=== PATIENT | male | born 1935 | race Caucasian/White ===

== ENCOUNTER 2017-04-10 21:09 | Emergency (ER) | payer OTHER ==
[2017-04-10 22:11] VITALS: BP 117/66; PULSE 77; TEMP 97.6; BMI 30.8
--- NOTE | 2017-04-10 22:54 | PDOC ---
History of Present Illness - General Chief Complaint: Blood Sugar Problem Stated Complaint: BLOOD SUGER PROB. Time Seen by Provider: 04/10/17 22:16 - History of Present Illness Initial Comments: 04/10/17 22:54 CHIEF COMPLAINT: syncope HISTORY OF PRESENT ILLNESS: 82 yo M with hx of NIDDM and HTN presents to ED s/p fall from bed and syncope. Patient's family is at bedside and report that they heard a "thump" from upstairs and found the patient on the floor unresponsie "for a few seconds, maybe a few minutes." Patient denies headache, nausea, vomiting and family reports he is now acting per baseline. Family denies any slurred speech or weakness . Patient is well appearing and now eating in the ED. PAST MEDICAL HISTORY: as per HPI FAMILY HISTORY: Denies SOCIAL HISTORY: Denies tobacco, alcohol, illicit drug use. SURGICAL HISTORY: Denies ALLERGIES: No known drug allergies REVIEW OF SYSTEMS General/Constitutional: Denies fever or chills. Denies weakness, weight change. HEENT: Denies change in vision. Denies ear pain or discharge. Denies sore throat. Cardiovascular: Denies chest pain or shortness of breath. Respiratory: Denies cough, wheezing, or hemoptysis. Gastrointestinal: Denies nausea, vomiting, diarrhea or constipation. Denies rectal bleeding. Genitourinary: Denies dysuria, frequency, or change in urination. Musculoskeletal: Pain to "left side of my tailbone" and L shoulder pain. Skin and breasts: Denies rash or easy bruising. Neurologic: LOC "for a few seconds or minutes." PHYSICAL EXAM General Appearance: Well-appearing, appropriately dressed. No apparent distress. HEENT: EOMI, PERRLA, normal ENT inspection, normal voice, TMs normal, pharynx normal. No conjunctival pallor. No photophobia, scleral icterus. Neck: Supple. Trachea midline. No tenderness, rigidity, carotid bruit, stridor , lymphadenopathy, or thyromegaly. Respiratory/Chest: Lungs CTAB. No shortness of breath, chest tenderness, respiratory distress, accessory muscle use. No crackles, rales, rhonchi, stridor , wheezing, dullness Cardiovascular: RRR. S1, S2. No JVD, murmur, bradycardia, tachycardia. Vascular Pulses: Dorsalis-Pedis (R): 2+, Dorsalis-Pedis (L): 2+ Gastrointestinal/Abdominal: Normal bowel sounds. Abdomen soft, non-distended. No tenderness or rebound tenderness. No organomegaly, pulsatile mass, guarding , hernia, hepatomegaly, splenomegaly. Musculoskeletal/Extremities: Reproducible tenderness to L shoulder and sacrum. Normal inspection. FROM of all extremities, normal capillary refill. Pelvis Stable. No CVA tenderness. No tenderness to extremities, pedal edema, swelling , erythema or deformity. Integumentary: Appropriate color, dry, warm. No cyanosis, erythema, jaundice or rash Neurologic: stoker erector and servicer II-XII intact. Fully oriented, alert. Appropriate mood/affect. Motor strength 5/5. No appreciable EOM palsy, facial droop or sensory deficit. A&Ox3, follow commands, respond appropriately CN2-12: conjugate gaze, pupil round, equal and reactive to light. Visual field full to confrontation. EOMI without nystagmus, pursuit is smooth without saccade. Facial sensation and muscle activation intact bilaterally. Hearing intact bilaterally. Palate elevate symmetrically. Shoulder shrug and neck turn full strength. Tongue protrude midline. Motor: UE and LE strength 5/5 throughout bilaterally. Muscle tone and bulk normal. Sensory: pin prick & temp : BUE & BLE intact and equal bilaterally Vibration & propioception: intact bilaterally at 1st MCP and MTP joints. no sensory level noted on trunk Cerebellar: Rapid-alternating movement with regular rhythm without bradykinesia. Uysjlc-nk-vjbn and reap-ge-etrr intact bilaterally without dysmetria or overshoot. Gait narrow based. No shuffling. Full hip flexion and knee flexion. Past History - Past Medical History Allergies/Adverse Reactions: Allergies Allergy/AdvReac Type Severity Reaction Status Date / Time No Known Allergies Allergy Verified 04/10/17 22:28 Home Medications: Ambulatory Orders Aspirin [ASA] 81 mg PO DAILY 09/18/12 Atorvastatin Calcium 20 mg PO DAILY 09/18/12 Glimepiride [Amaryl] 4 mg PO DAILY@0700 09/18/12 Saxagliptin HCl/Metformin HCl [Kombiglyze Xr 2.5-1,000 mg Tab] 1 each PO DAILY 09/18/12 Meclizine HCl [Antivert -] 25 mg PO TID PRN #30 tablet 03/24/14 ASA/Calcium Carb/Mag/Aluminum [Rolanda Plus 500 mg Caplet] 1 - 2 tab PO DAILY PRN 12/14/14 Antiox.mv No.10/Omeg3s/Lut/New [I-Caps with Lutein-[place] 3 Sfg] 2 each PO BID Meloxicam [Mobic (Nf) -] 15 mg PO DAILY 12/14/14 Ramipril 2.5 mg PO DAILY 12/14/14 Econazole Nitrate 1 applic TD DAILY 03/17/16 Diabetes: Yes HTN: Yes Hypercholesterolemia: Yes - Suicide/Smoking/Psychosocial Hx Smoking Status: No Smoking History: Never smoked Number of Cigarettes Smoked Daily: 0 Hx Alcohol Use: No Drug/Substance Use Hx: No Substance Use Type: None *Physical Exam - Vital Signs Last Vital Signs Temp Pulse Resp BP Pulse Ox 97.6 F 77 16 117/66 98 04/10/17 22:05 04/10/17 22:05 04/10/17 22:05 04/10/17 22:05 04/10/17 22:05 ED Treatment Course - LABORATORY CBC & Chemistry Diagram: 04/10/17 23:33 04/10/17 23:33 - ADDITIONAL ORDERS Additional order review: Laboratory Results 04/10/17 22:33 POC Glucometer 67.50743 04/10/17 22:33 POC Glucometer 67.04186 - RADIOLOGY Radiology Studies Ordered: Category Date Time Status HEAD CT WITHOUT CONTRAST [CT] Stat CT Scan 04/10/17 22:51 Ordered SACRUM [RAD] Stat Radiology 04/10/17 22:51 Ordered SHOULDER-LEFT [RAD] Stat Radiology 04/10/17 22:51 Ordered Medical Decision Making - Medical Decision Making 04/10/17 23:44 82 yo M with hx of NIDDM and HTN presents to ED s/p fall from bed and syncope. -CBC, CMP, PT/INR, card profile, mg -UA, Ucx -POC glucose -Head CT -shoulder/sacral x-rays 04/11/17 00:16 POC glucose 67, taken while patient was eating sandwich. Syncope likely secondary to hypoglycemia, now resolved. Advised patient to f/u with Dr. Loera regarding diabetes medication. *DC/Admit/Observation/Transfer Diagnosis at time of Disposition: Hypoglycemia Syncope Qualifiers: Syncope type: unspecified Qualified Code(s): R55 - Syncope and collapse - Discharge Dispostion Disposition: HOME Condition at time of disposition: Stable Admit: No - Referrals Referrals: Oriana Loera MD [Primary Care Provider] - - Patient Instructions Printed Discharge Instructions: DI for Hypoglycemia Additional Instructions: As discussed, all your labs and imaging were negative today. Please follow up with Dr. Loera for management of your diabetes medication this week. If you develop any chest pain, shortness of breath, dizziness, nausea, vomiting, tremors, or any new or worsening symptoms, please return to the ER. - Post Discharge Activity
--- NOTE | 2017-04-10 23:21 | PDOC ---
*Physical Exam - Vital Signs Last Vital Signs Temp Pulse Resp BP Pulse Ox 97.6 F 77 16 117/66 98 04/10/17 22:05 04/10/17 22:05 04/10/17 22:05 04/10/17 22:05 04/10/17 22:05 ED Treatment Course - LABORATORY CBC & Chemistry Diagram: 04/10/17 23:33 04/10/17 23:33 - ADDITIONAL ORDERS Additional order review: Laboratory Results 04/10/17 22:33 POC Glucometer 67.83262 04/10/17 22:33 POC Glucometer 67.85009 Medical Decision Making - Medical Decision Making 04/10/17 23:21 agree with care from MARCEL Velásquez *DC/Admit/Observation/Transfer Diagnosis at time of Disposition: Syncope, Hypoglycemia - Discharge Dispostion Disposition: HOME Condition at time of disposition: Stable - Referrals Referrals: Oriana Loera MD [Primary Care Provider] - - Patient Instructions Printed Discharge Instructions: DI for Hypoglycemia Additional Instructions: As discussed, all your labs and imaging were negative today. Please follow up with Dr. Loera for management of your diabetes medication this week. If you develop any chest pain, shortness of breath, dizziness, nausea, vomiting, tremors, or any new or worsening symptoms, please return to the ER. - Post Discharge Activity
[2017-04-10 23:22] LABS: URINE APPEARANCE CLEAR; URINE BILIRUBIN NEGATIVE (NEGATIVE); URINE BLOOD NEGATIVE (NEGATIVE); URINE COLOR YELLOW; URINE GLUCOSE (UA) NEGATIVE (NEGATIVE); URINE KETONE NEGATIVE (NEGATIVE); URINE LEUK ESTERASE NEGATIVE (NEGATIVE); URINE NITRITE NEGATIVE (NEGATIVE); URINE PROTEIN NEGATIVE (NEGATIVE)
[2017-04-10 23:42] LABS: BASO % 0.5 % (0-2.0); EOS % 0.2 % (0-4.5); HEMATOCRIT 41.4 % (35.4-49); HEMOGLOBIN 13.9 GM/dL (11.7-16.9); LYMPH % 19.2 % (8-40); MCHC 33.6 g/dl (32.0-35.9); MEAN CELL VOLUME 95.3 fl (80-96); MEAN PLT VOLUME 9.5 fl (7.5-11.1); MONO % 6.7 % (3.8-10.2); NEUT % 73.4 % (42.8-82.8); PLATELET COUNT 154 K/MM3 (134-434); RBC 4.34 M/mm3 (4.00-5.60); RDW 13.1 % (11.9-15.9); WHITE BLOOD COUNT 8.7 K/mm3 (4.0-10.0)
[2017-04-10 23:54] LABS: INR 0.99 (0.82-1.09); PROTHROMBIN TIME (PATIENT) 11.2 SEC (9.98-11.88)
[2017-04-11 00:06] LABS: ALBUMIN 3.7 g/dl (3.4-5.0); ANION GAP 10 (8-16); BILIRUBIN,TOTAL 0.5 mg/dL (0.2-1.0); BLOOD UREA NITROGEN 12 mg/dL (7-18); CALCIUM 8.5 mg/dL (8.5-10.1); CHLORIDE 104 mmol/L (98-107); CREATININE 0.7 mg/dL (0.7-1.3); GLUCOSE,RANDOM 81 mg/dL (74-106); POTASSIUM 4.2 mmol/L (3.5-5.1); SGOT/AST 18 U/L (15-37); SGPT/ALT 19 U/L (12-78); SODIUM 142 mmol/L (136-145); TOT PROT 6.7 g/dl (6.4-8.2)
[2017-04-11 00:08] LABS: ALK PHOS 59 U/L (45-117)
[2017-04-11 00:26] LABS: CO2 29 mmol/L (21-32)
[2017-04-11] MEDS ORDERED: KETOROLAC TROMETHAMINE 30 MG/1 ML VIAL IVPUSH ONE (00:59)
[2017-04-11] MEDS ORDERED: KETOROLAC TROMETHAMINE 30 MG/1 ML VIAL ONE (01:50)
== END 2017-04-11 01:58 | disposition home or self-care (01) ==
LOC: JER 21:09
PROC: 3E0333Z Introduction of Anti-inflammatory into Peripheral Vein, Percutaneous Approach (ICD-10-PCS; principal; 2017-04-10)
DX: E11.649 Type 2 diabetes mellitus with hypoglycemia without coma (principal); I10 Essential (primary) hypertension; R55 Syncope and collapse; W18.39XA Other fall on same level, initial encounter; Y93.89 Activity, other specified; Y92.9 Unspecified place or not applicable
CPT/HCPCS: 36415; 70450-TC; 72220-TC; 73030-TC-LT; 80053; 81003; 82550; 82962; 83735; 84484; 85025; 85610; 87086; 99281-25

== ENCOUNTER 2017-06-07 21:45 | Observation (INO) | payer OTHER ==
--- NOTE | 2017-06-07 21:46 | PDOC ---
Rapid Medical Evaluation Time Seen by Provider: 06/07/17 21:46 Medical Evaluation: Allergies Allergy/AdvReac Type Severity Reaction Status Date / Time No Known Allergies Allergy Verified 04/10/17 22:28 06/07/17 21:46 82 year old male history NIDDM, HTN, and macular degeneration brought in ambulatory to ED by sons after an episode of slurred speech at 7pm, which seemed to improve after eating but then recurred. Speech is currently normal. Was seen here with similar symptoms in March, attributed to hypoglycemia. Some mild difficulty with word-finding noted. V/s unremarkable. -Fingerstick blood glucose =172 -Stroke labs -Head CT -To Main ED for further evaluation 06/07/17 21:51
[2017-06-07 21:54] VITALS: BMI 31.7
--- NOTE | 2017-06-08 01:32 | PDOC ---
History of Present Illness - General History Source: Patient, Family Exam Limitations: No Limitations - History of Present Illness Initial Comments: 06/08/17 01:56 The patient is a 82 year old male, with a significant past medical history of hypertension, hyperlipidemia, and diabetes mellitus, who presents to the emergency department with, dysarthria beginning approx. 6 hours ago. The patient states that around 6:30 pm/ 7 pm this evening he had a sudden onset of dysarthria where he knew what he wanted to say. However, when he spoke the words came out as gibberish and not in complete sentences. As per patients family present at bedside, the dysarthria lasted for a couple of hours before resolving on its own around 9:30 pm/ 10 pm. The patient reports similar symptoms in the past when he was hypoglycemic. However, family present at bedside reports his speech sounded more like moans and was different than this current episode. No LOC. Denies focal weakness or numbness. Takes daily ASA 81mg. He denies any recent fevers, chills, headache or dizziness. He denies any recent nausea, vomit, diarrhea or constipation. He denies any recent chest pain or shortness of breath. He denies any recent dysuria, frequency, urgency or hematuria. Allergies: NKA Primary Care Physician: Dr. Oriana Loera Documentation prepared by Sriram Landaverde, acting as medical affairs director for Izabella Pulido MD. <Sriram Landaverde - Last Filed: 06/08/17 01:58> <Izabella Pulido - Last Filed: 06/08/17 02:18> - General Chief Complaint: CVA/TIA Stated Complaint: SLURRED SPEECH Time Seen by Provider: 06/07/17 21:46 Past History <Sriram Landaverde - Last Filed: 06/08/17 01:58> - Past Medical History COPD: No Diabetes: Yes HTN: Yes Hypercholesterolemia: Yes - Suicide/Smoking/Psychosocial Hx Smoking Status: No Smoking History: Never smoked Have you smoked in the past 12 months: No Number of Cigarettes Smoked Daily: 0 Information on smoking cessation initiated: No Hx Alcohol Use: No Drug/Substance Use Hx: No Substance Use Type: None <Izabella Pulido - Last Filed: 06/08/17 02:18> - Past Medical History Allergies/Adverse Reactions: Allergies Allergy/AdvReac Type Severity Reaction Status Date / Time No Known Allergies Allergy Verified 06/07/17 21:51 Home Medications: Ambulatory Orders Aspirin [ASA] 81 mg PO DAILY 09/18/12 Atorvastatin Calcium 20 mg PO DAILY 09/18/12 Glimepiride [Amaryl] 4 mg PO DAILY@0700 09/18/12 Saxagliptin HCl/Metformin HCl [Kombiglyze Xr 2.5-1,000 mg Tab] 1 each PO DAILY 09/18/12 Meclizine HCl [Antivert -] 25 mg PO TID PRN #30 tablet 03/24/14 ASA/Calcium Carb/Mag/Aluminum [Rolanda Plus 500 mg Caplet] 1 - 2 tab PO DAILY PRN 12/14/14 Antiox.mv No.10/Omeg3s/Lut/New [I-Caps with Lutein-[place] 3 Sfg] 2 each PO BID Meloxicam [Mobic (Nf) -] 15 mg PO DAILY 12/14/14 Ramipril 2.5 mg PO DAILY 12/14/14 Econazole Nitrate 1 applic TD DAILY 03/17/16 Review of Systems - Review of Systems Comments:: 06/08/17 01:57 GENERAL/CONSTITUTIONAL: No fever or chills. No weakness. HEAD, EYES, EARS, NOSE AND THROAT: No change in vision. No ear pain or discharge. No sore throat. GASTROINTESTINAL: No nausea, vomiting, diarrhea or constipation. GENITOURINARY: No dysuria, frequency, or change in urination. CARDIOVASCULAR: No chest pain or shortness of breath. RESPIRATORY: No cough, wheezing, or hemoptysis. MUSCULOSKELETAL: No joint or muscle swelling or pain. No neck or back pain. SKIN: No rash NEUROLOGIC: (+) Dysarthria. No headache, vertigo, loss of consciousness, or change in strength/sensation. ENDOCRINE: No increased thirst. No abnormal weight change. HEMATOLOGIC/LYMPHATIC: No anemia, easy bleeding, or history of blood clots. ALLERGIC/IMMUNOLOGIC: No hives or skin allergy. <Sriram Landaverde - Last Filed: 06/08/17 01:58> *Physical Exam - Vital Signs Last Vital Signs Temp Pulse Resp BP Pulse Ox 97.8 F 77 18 145/65 96 06/07/17 21:51 06/07/17 21:51 06/07/17 21:51 06/07/17 21:51 06/07/17 21:51 - Physical Exam Comments: 06/08/17 01:57 GENERAL: Awake, alert, and fully oriented, in no acute distress HEAD: No signs of trauma EYES: PERRLA, EOMI, sclera anicteric, conjunctiva clear ENT: Auricles normal inspection, hearing grossly normal, nares patent, oropharynx clear without exudates. Moist mucosa NECK: Normal ROM, supple, no lymphadenopathy, JVD, or masses LUNGS: Breath sounds equal, clear to auscultation bilaterally. No wheezes, and no crackles HEART: Regular rate and rhythm, normal S1 and S2, 2/6 GENE loudest at RSB, no rubs or gallops ABDOMEN: Soft, nontender, normoactive bowel sounds. No guarding, no rebound. No masses EXTREMITIES: Normal range of motion, no edema. No clubbing or cyanosis. No cords , erythema, or tenderness BACK: No midline spinal tenderness in cervical/thoracic/lumbar region NEUROLOGICAL: Normal speech, cranial nerves intact, negative pronator drift, 5/ 5 strength in all 4 extremities, normal sensation to light touch in all 4 extremities, normal cerebellar exam, normal gait, normal reflexes and tone SKIN: Warm, Dry, normal turgor, no rashes or lesions noted. <Sriram Landaverde - Last Filed: 06/08/17 01:58> - Vital Signs Last Vital Signs Temp Pulse Resp BP Pulse Ox 97.8 F 77 18 145/65 96 06/07/17 21:51 06/07/17 21:51 06/07/17 21:51 06/07/17 21:51 06/07/17 21:51 <Izabella Pulido - Last Filed: 06/08/17 02:18> NIH Stroke Scale - Last Known Well Date/Time & Onset Date Last Known Well: 06/07/17 Time Last Known Well: 18:30 - Initial Evaluation Level of consciousness: Alert Ask patient the month and their age: Answers both correctly Ask patient to open & close eyes; make fist and let go: Obeys both correctly Best gaze (horizontal eye movement): Normal Visual field testing: No visual field loss Facial paresis (Show teeth/raise eyebrows/close eyes tight): Normal symmetrical movement Motor Function: Left Arm: Normal Motor Function: Right Arm: Normal (extends arm 90 (or 45) degrees for 10 seconds without drift Motor Function: Left Leg: Normal (extends leg 30 degrees for 5 seconds without drift) Motor Function: Right Leg: Normal (extends leg 30 degrees for 5 seconds without drift) Limb Ataxia: No ataxia Sensory(Use pinprick test arms,legs,trunk,face/side to side): Normal Best language (Describe picture, name items, read sentences): No Aphasia Dysarthria (read several words): Normal articulation Extinction and Inattention: No abnormality - Total Score NIH Stroke Scale Score: 0 <Izabella Pulido - Last Filed: 06/08/17 02:18> Critical Care Time/MDM Note - Medical Decision Making Note: 06/08/17 01:[address] Nova at 1:30 am. Case discussed. <Sriram Landaverde - Last Filed: 06/08/17 01:58> - Medical Decision Making Note: 06/08/17 01:31 82-year-old male with a history of [id number] diabetes, hyperlipidemia, hypertension presents emergency Department with transient ordered finding difficulty and word salad. Vitals unremarkable. Exam currently unremarkable with an NIH stroke scale of 0. Given NIHSS of 0, will hold off on TPA. Story concerning for TIA versus stuttering CVA. CT head negative. Labs within normal limits. Will consult neurology and give 80mg of Lipitor and the full dose of aspirin, order MRI, and admit. 06/08/17 02:17 Labs/EKG pending, remains clinically stable. Pt signed out to Dr. Buenrostro for further mgmt. <Izabella Pulido - Last Filed: 06/08/17 02:18> Discharge Disposition <Sriram Landaverde - Last Filed: 06/08/17 01:58> - Discharge Dispostion Last Admission D/C Date: 09/17/06 <Izabella Pulido - Last Filed: 06/08/17 02:18> - Referrals Referrals: Oriana Loera MD [Primary Care Provider] - - Patient Instructions - Post Discharge Activity
[2017-06-08] MEDS ORDERED: ATORVASTATIN CA 80 MG TABLET (FP) PO ONE (01:40)
[2017-06-08] MEDS ORDERED: ASPIRIN 325 MG TABLET PO ONE (01:40)
[2017-06-08] MEDS ORDERED: ASPIRIN 325 MG TABLET ONE (02:49)
[2017-06-08 03:15] LABS: BASO % 0.5 % (0-2.0); EOS % 2.9 % (0-4.5); LYMPH % 36.8 % (8-40); MCHC 34.3 g/dl (32.0-35.9); MEAN CELL VOLUME 96.2 fl (80-96); MEAN PLT VOLUME 9.7 fl (7.5-11.1); MONO % 10.1 % (3.8-10.2); NEUT % 49.7 % (42.8-82.8); PLATELET COUNT 160 K/MM3 (134-434); RBC 3.95 M/mm3 (4.00-5.60); RDW 13.3 % (11.9-15.9); URINE APPEARANCE CLEAR; URINE BILIRUBIN NEGATIVE (NEGATIVE); URINE BLOOD NEGATIVE (NEGATIVE); URINE COLOR YELLOW; URINE GLUCOSE (UA) NEGATIVE (NEGATIVE); URINE KETONE NEGATIVE (NEGATIVE); URINE LEUK ESTERASE NEGATIVE (NEGATIVE); URINE NITRITE NEGATIVE (NEGATIVE); URINE PROTEIN NEGATIVE (NEGATIVE); URINE UROBILINOGEN 4.0 E.U/dl mg/dL (0.2-1.0); WHITE BLOOD COUNT 6.9 K/mm3 (4.0-10.0)
[2017-06-08 03:25] LABS: PROTHROMBIN TIME (PATIENT) 11.3 SEC (9.98-11.88)
[2017-06-08 03:35] LABS: ALBUMIN 3.4 g/dl (3.4-5.0); ANION GAP 6 (8-16); BILIRUBIN,TOTAL 0.3 mg/dL (0.2-1.0); BLOOD UREA NITROGEN 20 mg/dL (7-18); CALCIUM 8.1 mg/dL (8.5-10.1); CHLORIDE 105 mmol/L (98-107); CHOLESTEROL 98 mg/dL (50-200); CO2 30 mmol/L (21-32); CREATININE 0.7 mg/dL (0.7-1.3); GLUCOSE,RANDOM 68 mg/dL (74-106); LDL CHOLESTEROL (ONLY SJRH) 58 mg/dL (5-100); SGPT/ALT 19 U/L (12-78); SODIUM 141 mmol/L (136-145); TOT PROT 6.2 g/dl (6.4-8.2); TRIGLYCERIDES 102 mg/dL (35-160)
[2017-06-08 03:36] LABS: ALK PHOS 46 U/L (45-117); HDL CHOLESTEROL 38 mg/dL (40-60)
[2017-06-08 03:37] LABS: POTASSIUM 4.6 mmol/L (3.5-5.1)
[2017-06-08 03:38] LABS: SGOT/AST 29 U/L (15-37)
--- NOTE | 2017-06-08 04:06 | PDOC ---
*Physical Exam - Vital Signs Last Vital Signs Temp Pulse Resp BP Pulse Ox 97.8 F 77 18 145/65 96 06/07/17 21:51 06/07/17 21:51 06/07/17 21:51 06/07/17 21:51 06/07/17 21:51 ED Treatment Course - LABORATORY CBC & Chemistry Diagram: 06/08/17 02:22 06/08/17 02:22 - ADDITIONAL ORDERS Additional order review: Laboratory Results 06/08/17 06/08/17 06/08/17 02:22 02:22 02:22 PT with INR 11.30 INR 1.00 Sodium 141 Potassium 4.6 Chloride 105 Carbon Dioxide 30 Anion Gap 6 L BUN 20 H D Creatinine 0.7 Creat Clearance w eGFR > 60 POC Glucometer Random Glucose 68 L Calcium 8.1 L Total Bilirubin 0.3 D AST 29 D ALT 19 Alkaline Phosphatase 46 D Creatine Kinase 85 Troponin I < 0.02 Total Protein 6.2 L Albumin 3.4 Triglycerides 102 Cholesterol 98 Total LDL Cholesterol 58 HDL Cholesterol 38 L Urine Color Yellow Urine Appearance Clear Urine pH 5.0 Ur Specific [place] 1.023 Urine Protein Negative Urine Glucose (UA) Negative Urine Ketones Negative Urine Blood Negative Urine Nitrite Negative Urine Bilirubin Negative Urine Urobilinogen 4.0 e.u/dl Ur Leukocyte Esterase Negative 06/07/17 21:56 PT with INR INR Sodium Potassium Chloride Carbon Dioxide Anion Gap BUN Creatinine Creat Clearance w eGFR POC Glucometer 172.34591 Random Glucose Calcium Total Bilirubin AST ALT Alkaline Phosphatase Creatine Kinase Troponin I Total Protein Albumin Triglycerides Cholesterol Total LDL Cholesterol HDL Cholesterol Urine Color Urine Appearance Urine pH Ur Specific [place] Urine Protein Urine Glucose (UA) Urine Ketones Urine Blood Urine Nitrite Urine Bilirubin Urine Urobilinogen Ur Leukocyte Esterase 06/08/17 06/07/17 02:22 21:56 RBC 3.95 L MCV 96.2 H MCHC 34.3 RDW 13.3 MPV 9.7 Neutrophils % 49.7 D Lymphocytes % 36.8 D Monocytes % 10.1 Eosinophils % 2.9 D Basophils % 0.5 POC Glucometer 172.85905 - Medications Given in the ED: ED Medications Discontinued Medications Generic Name Dose Route Start Last Admin Trade Name Freq PRN Reason Stop Dose Admin Aspirin 325 mg 06/08/17 01:40 06/08/17 02:51 Asa - PO 06/08/17 01:41 325 mg ONCE ONE Administration Atorvastatin Calcium 80 mg 06/08/17 01:40 06/08/17 02:52 Lipitor - PO 06/08/17 01:41 80 mg ONCE ONE Administration *DC/Admit/Observation/Transfer Diagnosis at time of Disposition: TIA (transient ischemic attack) - Discharge Dispostion Condition at time of disposition: Stable Admit: Yes - Referrals Referrals: Oriana Loera MD [Primary Care Provider] - - Patient Instructions - Post Discharge Activity
[2017-06-08] MEDS ORDERED: HEMOQUE TEST 1 EACH EACH ONE (04:55)
--- NOTE | 2017-06-08 05:35 | HP ---
CHIEF COMPLAINT:garbled speech PCP: Lea HISTORY OF PRESENT ILLNESS: This is an 82 year old male with a past medical history of DM, HTN, HLD who presented to the ED after an episode of garbled speech from about 630-10pm. Pt reports he was trying to say words but they would come out wrong or the wrong word would come out. He recalls entire episode. he had a similar episode of dysarthria in the past which was associated with hypoglycemia. His sugar in the ED upon arrival was 172. ER course was notable for: (1) CT head without acute changes (2) Glucose on labs @222am was 68 Recent Travel: pt denies PAST MEDICAL HISTORY: HTN, HLD, DM, macular degeneration PAST SURGICAL HISTORY: L TKR B/L cataracts fractured arm as a child Social History: Smoking: pt denies Alcohol: pt denies Drugs: pt denies Allergies No Known Allergies Allergy (Verified 06/07/17 21:51) HOME MEDICATIONS: 3 Medication Instructions Recorded Aspirin [ASA] 81 mg PO DAILY 09/18/12 Atorvastatin Calcium 20 mg PO DAILY 09/18/12 Glimepiride [Amaryl] 4 mg PO DAILY@0700 09/18/12 Saxagliptin HCl/Metformin HCl 1 each PO DAILY 09/18/12 [Kombiglyze Xr 2.5-1,000 mg Tab] Antiox.mv No.10/Omeg3s/Lut/New 2 each PO BID 12/14/14 [I-Caps with Lutein-[place] 3 Sfg] Ramipril 2.5 mg PO DAILY 12/14/14 Aleve PRN REVIEW OF SYSTEMS CONSTITUTIONAL: Absent: fever, chills, diaphoresis, generalized weakness, malaise, loss of appetite, weight change HEENT: Absent: rhinorrhea, nasal congestion, throat pain, throat swelling, difficulty swallowing, mouth swelling, ear pain, eye pain, visual changes CARDIOVASCULAR: Absent: chest pain, syncope, palpitations, irregular heart rate, lightheadedness , peripheral edema RESPIRATORY: Absent: cough, shortness of breath, dyspnea with exertion, orthopnea, wheezing, stridor, hemoptysis GASTROINTESTINAL: Absent: abdominal pain, abdominal distension, nausea, vomiting, diarrhea, constipation, melena, hematochezia GENITOURINARY: Absent: dysuria, frequency, urgency, hesitancy, hematuria, flank pain, genital pain MUSCULOSKELETAL: Absent: myalgia, arthralgia, joint swelling, back pain, neck pain SKIN: Absent: rash, itching, pallor HEMATOLOGIC/IMMUNOLOGIC: Absent: easy bleeding, easy bruising, lymphadenopathy, frequent infections ENDOCRINE: Absent: unexplained weight gain, unexplained weight loss, heat intolerance, cold intolerance NEUROLOGIC: Present: dysarthria Absent: headache, focal weakness or paresthesias, dizziness, unsteady gait, seizure, mental status changes, bladder or bowel incontinence PSYCHIATRIC: Absent: anxiety, depression, suicidal or homicidal ideation, hallucinations. PHYSICAL EXAMINATION Vital Signs - 24 hr 3 06/07/17 21:51 Temperature 97.8 F Pulse Rate 77 Respiratory 18 Rate Blood Pressure 145/65 O2 Sat by Pulse 96 Oximetry (%) GENERAL: Awake, alert, and fully oriented, in no acute distress. HEAD: Normal with no signs of trauma. EYES: Pupils equal, round and reactive to light, extraocular movements intact, sclera anicteric, conjunctiva clear. No lid lag. EARS, NOSE, THROAT: Ears normal, nares patent, oropharynx clear without exudates. Moist mucous membranes. NECK: Normal range of motion, supple without lymphadenopathy, JVD, or masses. LUNGS: Breath sounds equal, clear to auscultation bilaterally. No wheezes, and no crackles. No accessory muscle use. HEART: Regular rate and rhythm, normal S1 and S2 without murmur, rub or gallop. ABDOMEN: Soft, nontender, not distended, normoactive bowel sounds, no guarding, no rebound, no masses. No hepatomegaly or splenomegaly. MUSCULOSKELETAL: Normal range of motion at all joints. No bony deformities or tenderness. No CVA tenderness. UPPER EXTREMITIES: 2+ pulses, warm, well-perfused. No cyanosis. No clubbing. No peripheral edema. LOWER EXTREMITIES: 2+ pulses, warm, well-perfused. No calf tenderness. No peripheral edema. NEUROLOGICAL: Cranial nerves II-XII intact. Normal speech. Normal gait. PSYCHIATRIC: Cooperative. Good eye contact. Appropriate mood and affect. SKIN: Warm, dry, normal turgor, no rashes or lesions noted, normal capillary refill. Laboratory Results - last 24 hr 3 06/07/17 06/08/17 06/08/17 21:56 02:22 02:22 WBC 6.9 RBC 3.95 L Hgb 13.0 Hct 38.0 MCV 96.2 H MCH 33.0 MCHC 34.3 RDW 13.3 Plt Count 160 MPV 9.7 Neutrophils % 49.7 D Lymphocytes % 36.8 D Monocytes % 10.1 Eosinophils % 2.9 D Basophils % 0.5 PT with INR 11.30 INR 1.00 Sodium Potassium Chloride Carbon Dioxide Anion Gap BUN Creatinine Creat Clearance w eGFR POC Glucometer [phone] Random Glucose Calcium Total Bilirubin AST ALT Alkaline Phosphatase Creatine Kinase Troponin I Total Protein Albumin Triglycerides Cholesterol Total LDL Cholesterol HDL Cholesterol Urine Color Urine Appearance Urine pH Ur Specific [place] Urine Protein Urine Glucose (UA) Urine Ketones Urine Blood Urine Nitrite Urine Bilirubin Urine Urobilinogen Ur Leukocyte Esterase Blood Type Antibody Screen 3 06/08/17 06/08/17 06/08/17 02:22 02:22 02:22 WBC RBC Hgb Hct MCV MCH MCHC RDW Plt Count MPV Neutrophils % Lymphocytes % Monocytes % Eosinophils % Basophils % PT with INR INR Sodium 141 Potassium 4.6 Chloride 105 Carbon Dioxide 30 Anion Gap 6 L BUN 20 H D Creatinine 0.7 Creat Clearance w eGFR > 60 POC Glucometer Random Glucose 68 L Calcium 8.1 L Total Bilirubin 0.3 D AST 29 D ALT 19 Alkaline Phosphatase 46 D Creatine Kinase 85 Troponin I < 0.02 Total Protein 6.2 L Albumin 3.4 Triglycerides 102 Cholesterol 98 Total LDL Cholesterol 58 HDL Cholesterol 38 L Urine Color Yellow Urine Appearance Clear Urine pH 5.0 Ur Specific [place] 1.023 Urine Protein Negative Urine Glucose (UA) Negative Urine Ketones Negative Urine Blood Negative Urine Nitrite Negative Urine Bilirubin Negative Urine Urobilinogen 4.0 e.u/dl Ur Leukocyte Esterase Negative Blood Type A POSITIVE Antibody Screen Negative ECG normal sinus rhythm Vent rate 67, QTC [address]/T wave changes Radiology Reports CT head noncontrast Impression: No definite interval change is identified in comparison to a prior CT exam of 04/11/2017. 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 Periventricular and subcortical chronic microvascular ischemic changes which are at least moderate. Reported By: Danie Wood MD 06/07/17 0860 ASSESSMENT/PLAN: 82yM with PMH HTN, HLD, DM, macular degeneration presented to the ED with a period of dysarthria. dysarthria - r/o TIA vs STACEY - MRI brain ordered - neuro consult appreciated - given ASA 325 and lipitor 80 in ED DM with hypoglycemia - BGM in ED at time of exam 48. pt alert and talking, given sandwich and juice - repeat BGM 30-60 mins - hold home glimepiride and saxagliptin/metformin HTN/HLD - cont home ramipril/home lipitor increased to 80 DVT PPX - heparin deferred, anticipated LOS <48h FEN - tolerating po fluids - lytes WNL, repeat tomorrow AM - diabetic diet as tolerated Dispo: Pt currently requires further monitoring. Visit type - Emergency Visit Emergency Visit: Yes ED Registration Date: 06/07/17 Care time: The patient presented to the Emergency Department on the above date and was hospitalized for further evaluation of their emergent condition. - New Patient This patient is new to me today: Yes Date on this admission: 06/08/17 - Critical Care Critical Care patient: No Hospitalist Screening - Colonoscopy Questionnaire Colonoscopy Questionnaire: Colonoscopy Questionnaire - Patient: 50 - 75 years old and never had a screening colonoscopy: No History of colon or rectal polyps, or CA: No History of IBD, Crohn's disease or UC: No History of abdominal radiation therapy as a child: No - Relative: 1 with colon or rectal CA, or polyps at age 60 or younger: Unknown Colon or rectal CA diagnosed at age 45 or younger: Unknown Multiple relatives with colon or rectal CA: Unknown - Outcome: Screening Result: Negative Screen
[2017-06-08] MEDS: INSULIN SLIDING SCALE (NOVOLOG) 1 VIAL SQ SCH ×3 (07:05→23:00)
[2017-06-08] MEDS ORDERED: ATORVASTATIN CA 20 MG TABLET (FP) PO SCH (10:00)
--- NOTE | 2017-06-08 10:32 | EKG ---
Test Reason : Blood Pressure : / mmHG Vent. Rate : 067 BPM Atrial Rate : 067 BPM P-R Int : 188 ms QRS Dur : 082 ms QT Int : 384 ms P-R-T Axes : 029 -09 031 degrees QTc Int : 405 ms NORMAL SINUS RHYTHM CANNOT RULE OUT SEPTAL INFARCT , AGE UNDETERMINED ABNORMAL ECG Confirmed by TYREL HANSON MD ([id number]) on 06/08/2017 10:32:43 AM Referred By: Confirmed By:TYREL HANSON MD
[2017-06-08] MEDS: ASPIRIN 81 MG CHEWABLE TABLETS PO SCH (10:37)
[2017-06-08] MEDS: RAMIPRIL 2.5 MG CAPSULE (FP) PO SCH (10:37)
[2017-06-08] MEDS: MULTIVITAMINS THER W-MINERALS COMBO TABLET (FP) PO SCH (10:37)
--- NOTE | 2017-06-08 19:12 | CON.NEURO ---
Consult Consult Specialty:: NEUROLOGY-RAMANA TAVERA Reason for Consultation:: Dysarthria - History of Present Illness Chief Complaint: Denies complaints History of Present Illness: This is an 82 year old male with a past medical history of DM, HTN, HLD who presented to the ED after an episode of garbled speech from about 630-10pm. Pt reports he was trying to say words but they would come out wrong or the wrong word would come out. He recalls entire episode. he had a similar episode of dysarthria in the past which was associated with hypoglycemia. His sugar in the ED upon arrival was 172. -as perngenieing pt. suddenly became paranoid about 20 mns prior to this note, is insisting he wishes to go home. He , in a loud voice reports "there is nothing wring with me, you are going to put a bul;let in my head", becomes combative when asked to be examined, refuses any hx/exam. He is not dysarthric but occasionally drops connecting words in his speech. - Alcohol/Substance Use Hx Alcohol Use: No - Smoking History Smoking history: Never smoked Have you smoked in the past 12 months: No Aproximately how many cigarettes per day: 0 Home Medications - Allergies Allergies/Adverse Reactions: Allergies Allergy/AdvReac Type Severity Reaction Status Date / Time No Known Allergies Allergy Verified 06/07/17 21:51 - Home Medications Home Medications: Ambulatory Orders Aspirin [ASA] 81 mg PO DAILY 09/18/12 Atorvastatin Calcium 20 mg PO DAILY 09/18/12 Glimepiride [Amaryl] 4 mg PO DAILY@0700 09/18/12 Saxagliptin HCl/Metformin HCl [Kombiglyze Xr 2.5-1,000 mg Tab] 1 each PO DAILY 09/18/12 Antiox.mv No.10/Omeg3s/Lut/New [I-Caps with Lutein-[place] 3 Sfg] 2 each PO BID Ramipril 2.5 mg PO DAILY 12/14/14 Physical Exam-Neuro Vital Signs: Vital Signs Temperature 97.6 F 06/08/17 17:00 Pulse Rate 80 06/08/17 17:00 Respiratory Rate 16 06/08/17 17:00 Blood Pressure 106/65 06/08/17 17:00 O2 Sat by Pulse Oximetry (%) 96 06/08/17 17:00 Labs: CBC, BMP 06/08/17 02:22 06/08/17 02:22 INR, PTT INR 1.00 (0.82-1.09) 06/08/17 02:22 - Neuro Exam Level Of Consciousness: Yes: Alert, Oriented to Person (refuses further testing , ) Eyes: Yes: HEVER Speech: Other (Loud, sparse dysfluency, no dysarthria.) Mini Mental Exam: Refuses testing Cranial Nerves II-XII Intact: No (right diminished NLF) DTR's: 0 Right Achilles (rEFUSES TESTING) Response to light touch: Normal (rEFUSES TESTING) Motor Strength: 5/5: Left Arm, Right Arm, Left Leg, Right Leg (gROSSLY, REFUSES FORMAL TESTING) Imaging - Results Cat Scan: Report Reviewed (Without acute changes) Assessment/Plan Pt. admitted with resolved dysarthria, on ASa. He does not appear to have dysarthria, i am not sure the episode he was admitted with was dysarthria or aphasia, likely motor aphasia given he has infrequent dysfluency of speech. Now suddenly paranoid, unclear etiology but likely delirious, need to r/o frontal ischmemia/metabolic abn.causing delirium. Suggest: basic metabolic panel MRI Brain as planned Can use risperdal 0.5 mg bid prn for paranoia and agitation Psychiatry consultation Thank you, Dean Latif MD
[2017-06-08] MEDS ORDERED: risperiDONE 0.5 MG TABLET (FP) PO PRN (19:35)
[2017-06-08] MEDS: ATORVASTATIN CA 80 MG TABLET (FP) PO SCH (21:48)
[2017-06-09 06:19] LABS: BASO % 0.3 % (0-2.0); EOS % 2.1 % (0-4.5); HEMATOCRIT 37.3 % (35.4-49); HEMOGLOBIN 13.1 GM/dL (11.7-16.9); LYMPH % 33.4 % (8-40); MCH 33.7 pg (25.7-33.7); MCHC 35.1 g/dl (32.0-35.9); MEAN CELL VOLUME 95.8 fl (80-96); MEAN PLT VOLUME 9.5 fl (7.5-11.1); MONO % 10.9 % (3.8-10.2); NEUT % 53.3 % (42.8-82.8); PLATELET COUNT 151 K/MM3 (134-434); RDW 13.4 % (11.9-15.9); WHITE BLOOD COUNT 6.7 K/mm3 (4.0-10.0)
[2017-06-09 06:59] LABS: ANION GAP 11 (8-16); BLOOD UREA NITROGEN 15 mg/dL (7-18); CALCIUM 8.2 mg/dL (8.5-10.1); CHLORIDE 105 mmol/L (98-107); CO2 29 mmol/L (21-32); CREATININE 0.7 mg/dL (0.7-1.3); GLUCOSE,RANDOM 128 mg/dL (74-106); MAGNESIUM 2.4 mg/dL (1.8-2.4); PHOSPHOROUS 3.9 mg/dL (2.5-4.9); POTASSIUM 3.7 mmol/L (3.5-5.1); SODIUM 145 mmol/L (136-145)
[2017-06-09] MEDS: MULTIVITAMINS THER W-MINERALS COMBO TABLET (FP) PO SCH (09:35)
[2017-06-09] MEDS: ASPIRIN 81 MG CHEWABLE TABLETS PO SCH (09:35)
[2017-06-09] MEDS: RAMIPRIL 2.5 MG CAPSULE (FP) PO SCH (09:35)
[2017-06-09] MEDS: INSULIN SLIDING SCALE (NOVOLOG) 1 VIAL SQ SCH ×3 (12:26→21:56)
--- NOTE | 2017-06-09 15:54 | PN ---
Physical Exam: SUBJECTIVE: Patient seen and examined. He has no complaints. OBJECTIVE: Vital Signs Period Temp Pulse Resp BP Sys/Pinedo Pulse Ox Last 24 Hr 97.5 F-98.6 F 62-94 16-20 106-130/60-79 95-98 GENERAL: The patient is awake, alert, and fully oriented, in no acute distress. LUNGS: Breath sounds equal, clear to auscultation bilaterally, no wheezes, no crackles, no accessory muscle use. HEART: Regular rate and rhythm, S1, S2 without murmur, rub or gallop. ABDOMEN: Obese, soft, nontender, nondistended, normoactive bowel sounds, no guarding, no rebound, no hepatosplenomegaly, no masses. EXTREMITIES: 2+ pulses, warm, well-perfused, no edema. NEUROLOGICAL: Normal speech, strength 5/5 in all extremities, gait not observed. Laboratory Results - last 24 hr 06/09/17 06/09/17 06/09/17 05:25 05:25 05:38 WBC 6.7 RBC 3.90 L Hgb 13.1 Hct 37.3 MCV 95.8 MCH 33.7 MCHC 35.1 RDW 13.4 Plt Count 151 MPV 9.5 Neutrophils % 53.3 Lymphocytes % 33.4 Monocytes % 10.9 H Eosinophils % 2.1 Basophils % 0.3 Sodium 145 Potassium 3.7 Chloride 105 Carbon Dioxide 29 Anion Gap 11 BUN 15 D Creatinine 0.7 POC Glucometer [phone] Random Glucose 128 H D Calcium 8.2 L Phosphorus 3.9 Magnesium 2.4 D 06/09/17 12:25 WBC RBC Hgb Hct MCV MCH MCHC RDW Plt Count MPV Neutrophils % Lymphocytes % Monocytes % Eosinophils % Basophils % Sodium Potassium Chloride Carbon Dioxide Anion Gap BUN Creatinine POC Glucometer 268.01168 Random Glucose Calcium Phosphorus Magnesium Active Medications Generic Name Dose Route Start Last Admin Trade Name Freq PRN Reason Stop Dose Admin Aspirin 81 mg 06/08/17 10:00 06/09/17 09:35 Asa - PO 81 mg DAILY JOSHUA Administration Atorvastatin Calcium 80 mg 06/08/17 22:00 06/08/17 21:48 Lipitor - PO 80 mg HS JOSHUA Administration Insulin Aspart 1 vial 06/08/17 22:00 06/08/17 23:00 Novolog Vial Sliding Scale - SQ Not Given HS JOSHUA Protocol Insulin Aspart 1 vial 06/08/17 07:00 06/09/17 12:27 Novolog Vial Sliding Scale - SQ 4 units TIDAC JOSHUA Administration Protocol Multivitamins/Minerals 1 each 06/08/17 10:00 06/09/17 09:35 Theragran-M PO 1 each DAILY JOSHUA Administration Ramipril 2.5 mg 06/08/17 10:00 06/09/17 09:35 Altace - PO 2.5 mg DAILY JOSHUA Administration Risperidone 0.5 mg 06/08/17 19:35 06/08/17 21:48 Risperdal - PO 0.5 mg BID PRN Administration AGITATION ASSESSMENT/PLAN:
--- NOTE | 2017-06-09 16:30 | PN ---
Progress Note, Physician Chief Complaint: Altered mental status History of Present Illness: his is an 82 year old male with a past medical history of DM, HTN, HLD who presented to the ED after an episode of garbled speech from about 630-10pm. Pt reports he was trying to say words but they would come out wrong or the wrong word would come out. He recalls entire episode. he had a similar episode of dysarthria in the past which was associated with hypoglycemia. His sugar in the ED upon arrival was 172. He was combative yesterday, but today is steady, and as per family is much more with it. Seems to be at baseline. MRI/MRA were not consistent with acute stroke. - Current Medication List Current Medications: Active Medications Aspirin (Asa -) 81 mg PO DAILY [facility] Last Admin: 06/09/17 09:35 Dose: 81 mg Atorvastatin Calcium (Lipitor -) 80 mg PO HS [facility] Last Admin: 06/08/17 21:48 Dose: 80 mg Insulin Aspart (Novolog Vial Sliding Scale -) 1 vial SQ HS JOSHUA PRN Reason: Protocol Last Admin: 06/08/17 23:00 Dose: Not Given Insulin Aspart (Novolog Vial Sliding Scale -) 1 vial SQ TIDAC JOSHUA PRN Reason: Protocol Last Admin: 06/09/17 12:27 Dose: 4 units Multivitamins/Minerals (Theragran-M) 1 each PO DAILY [facility] Last Admin: 06/09/17 09:35 Dose: 1 each Ramipril (Altace -) 2.5 mg PO DAILY [facility] Last Admin: 06/09/17 09:35 Dose: 2.5 mg Risperidone (Risperdal -) 0.5 mg PO BID PRN PRN Reason: AGITATION Last Admin: 06/08/17 21:48 Dose: 0.5 mg - Objective Vital Signs: Vital Signs Temperature 97.6 F 06/09/17 14:00 Pulse Rate 62 06/09/17 14:00 Respiratory Rate 18 06/09/17 14:00 Blood Pressure 107/61 06/09/17 14:00 O2 Sat by Pulse Oximetry (%) 95 06/09/17 10:39 Constitutional: Yes: Well Nourished, No Distress, Calm Neurological: Yes: Alert, Oriented, Babinski negative, Cran Nerves II-XII Intact ...Motor Strength: WNL Labs: CBC, BMP 06/09/17 05:25 06/09/17 05:25 INR, PTT INR 1.00 (0.82-1.09) 06/08/17 02:22 - ....Imaging Cat Scan: Report Reviewed, Image Reviewed MRI: Report Reviewed, Image Reviewed (MRI and MRA revealed no acute stroke or large vessel occlusion) Problem List - Problems (1) Acute metabolic encephalopathy Code(s): G93.41 - METABOLIC ENCEPHALOPATHY Assessment/Plan Though TIA is still in the differential, this could also have been a transient metabolic derangement, and that is what I would favor at this point. We'll sign off. Please call if further questions arise. Thanks.
[2017-06-09] MEDS ORDERED: PT OWN MED DRAWER 7, Y5N ONE (21:48)
[2017-06-09] MEDS: ATORVASTATIN CA 80 MG TABLET (FP) PO SCH (21:55)
[2017-06-10] MEDS: INSULIN SLIDING SCALE (NOVOLOG) 1 VIAL SQ SCH (06:27)
[2017-06-10] MEDS: ASPIRIN 81 MG CHEWABLE TABLETS PO SCH (10:21)
[2017-06-10] MEDS: MULTIVITAMINS THER W-MINERALS COMBO TABLET (FP) PO SCH (10:21)
[2017-06-10] MEDS: RAMIPRIL 2.5 MG CAPSULE (FP) PO SCH (10:21)
--- NOTE | 2017-06-10 11:29 | DS ---
Physical Exam: SUBJECTIVE: Patient seen and examined OBJECTIVE: Vital Signs Period Temp Pulse Resp BP Sys/Pinedo Pulse Ox Last 24 Hr 97.5 F-97.6 F 62-69 11-20 95-157/61-97 96 PHYSICAL EXAM GENERAL: The patient is awake, alert, and fully oriented, in no acute distress. HEAD: Normal with no signs of trauma. EYES: PERRL, extraocular movements intact, sclera anicteric, conjunctiva clear. ENT: Ears normal, nares patent, oropharynx clear without exudates, moist mucous membranes. NECK: Trachea midline, full range of motion, supple. LUNGS: Breath sounds equal, clear to auscultation bilaterally, no wheezes, no crackles, no accessory muscle use. HEART: Regular rate and rhythm, S1, S2 without murmur, rub or gallop. ABDOMEN: Soft, nontender, nondistended, normoactive bowel sounds, no guarding, no rebound, no hepatosplenomegaly, no masses. EXTREMITIES: 2+ pulses, warm, well-perfused, no edema. NEUROLOGICAL: Cranial nerves II through XII grossly intact. Normal speech, gait not observed. PSYCH: Normal mood, normal affect. SKIN: Warm, dry, normal turgor, no rashes or lesions noted. LABS Laboratory Results - last 24 hr 06/09/17 06/09/17 06/09/17 12:25 17:40 21:54 POC Glucometer 268.42166 [phone] 06/10/17 06:24 POC Glucometer [phone] HOSPITAL COURSE: Date of Admission:06/08/17 Date of Discharge: 06/10/17 Discharge Summary Reason For Visit: TRANSICENT CEREBRAL ISCHEMIA Current Active Problems Acute metabolic encephalopathy (Acute) TIA (transient ischemic attack) (Acute) Condition: Improved - Instructions Diet, Activity, Other Instructions: You were placed in observation for evaluation of an episode of dysarthria, or slurred speech, which improved on its own. MRI showed no evidence of a stroke. It is felt that this episode was a TIA (transient ischemic attack) or related to an abnormal blood glucose. You my resume your previous diet and activity. Please check and record your sugars before each meal and at bedtime. If you develop dizziness, slurred speech, weakness, confusion please return to the ER. Call Dr. Loera's office tomorrow to schedule a follow up appointment this week. Referrals: Oriana Loera MD [Primary Care Provider] - 1 Week Disposition: HOME - Home Medications Comprehensive Discharge Medication List: Ambulatory Orders Aspirin [ASA -] 81 mg PO DAILY 09/18/12 Atorvastatin Calcium 20 mg PO DAILY 09/18/12 Glimepiride [Amaryl -] 4 mg PO DAILY@0700 09/18/12 Saxagliptin HCl/Metformin HCl [Kombiglyze Xr 2.5-1,000 mg Tab] 1 each PO DAILY 09/18/12 Antiox.mv No.10/Omeg3s/Lut/New [I-Caps with Lutein-[place] 3 Sfg] 2 each PO BID Ramipril 2.5 mg PO DAILY 12/14/14 This patient is new to me today: No Emergency Visit: Yes ED Registration Date: 06/08/17 Care time: The patient presented to the Emergency Department on the above date and was hospitalized for further evaluation of their emergent condition. Critical Care patient: No - Discharge Referral Referred to [facility] No
[2017-06-10 12:29] VITALS: BP 130/72; PULSE 95; TEMP 98.3
== END 2017-06-10 12:12 | disposition home or self-care (01) ==
LOC: JER 21:45 → UNDOADMOB 06-08 04:06 → INTOOBSV 06-08 04:06 → JERBED 06-08 04:06 → UNDOADMIN 06-08 05:50 → J2W 06-08 17:06
PROVIDERS: ADMIT Internal Medicine; ATTEND Internal Medicine
PROC: 3E013VG Introduction of Insulin into Subcutaneous Tissue, Percutaneous Approach (ICD-10-PCS; principal; 2017-06-08)
DX: G45.9 Transient cerebral ischemic attack, unspecified (principal); G93.41 Metabolic encephalopathy; E08.649 Diabetes mellitus due to underlying condition with hypoglycemia without coma; Z79.84 Long term (current) use of oral hypoglycemic drugs; E78.5 Hyperlipidemia, unspecified; I10 Essential (primary) hypertension; Z79.82 Long term (current) use of aspirin
CPT/HCPCS: 36415; 70450-TC; 70544-TC; 70547-TC; 70551-TC; 80048; 80053; 80158; 81003; 82465; 82550; 82962; 83718; 83721; 83735; 84100; 84478; 84484; 85025; 85610; 86850; 86900; 86901; 93005; 93010; 96372; 99285-25; G0378

== ENCOUNTER 2018-05-20 13:10 | Emergency (ER) | payer OTHER ==
--- NOTE | 2018-05-20 13:36 | PDOC ---
History of Present Illness - General Stated Complaint: Constipation Time Seen by Provider: 05/20/18 13:36 History Source: Patient Exam Limitations: No Limitations - History of Present Illness Initial Comments: Pt is an 83 yo M, with PMH of NIDDM, HTN, HLD, TIA, who is presenting with complaints of constipation x4-5 days. Pt has been taking OTC "tuck pads" ( suppositories) with minimal relief. In the ER, pt had relief of his constipation with a large, non-bloody BM. Pt has been tolerating PO food and fluid intake with no difficulty. Pt denies any recent fevers/chills, headache, vision changes, syncope, chest pain, palpitations, SOB, nausea/vomiting, abdominal pain, urinary symptoms, diarrhea, or leg swelling. Social: Pt denies any cigarette, alcohol, or drug use. Pt denies any recent travel or sick contacts. Surgical: no relevant history. Family: no relevant history. 05/20/18 14:22 Past History - Travel Traveled outside of the country in the last 30 days: No Close contact w/someone who was outside of country & ill: No - Past Medical History Allergies/Adverse Reactions: Allergies Allergy/AdvReac Type Severity Reaction Status Date / Time No Known Allergies Allergy Verified 06/07/17 21:51 Home Medications: Ambulatory Orders Aspirin [ASA -] 81 mg PO DAILY 09/18/12 Atorvastatin Calcium 20 mg PO DAILY 09/18/12 Glimepiride [Amaryl -] 4 mg PO DAILY@0700 09/18/12 Saxagliptin HCl/Metformin HCl [Kombiglyze Xr 2.5-1,000 mg Tab] 1 each PO DAILY 09/18/12 Antiox.mv No.10/Omeg3s/Lut/New [I-Caps with Lutein-[place] 3 Sfg] 2 each PO BID Ramipril 2.5 mg PO DAILY 12/14/14 Docusate Sodium [Colace] 100 mg PO DAILY PRN #30 capsule 05/20/18 Polyethylene Glycol 3350 [Miralax (For Daily Use) -] 17 gm PO DAILY PRN #1 bottle 05/20/18 COPD: No Diabetes: Yes HTN: Yes Hypercholesterolemia: Yes - Surgical History Orthopedic Surgery: Yes (LKR) - Suicide/Smoking/Psychosocial Hx Smoking Status: No Smoking History: Never smoked Have you smoked in the past 12 months: No Number of Cigarettes Smoked Daily: 0 Hx Alcohol Use: No Drug/Substance Use Hx: No Substance Use Type: None Hx Substance Use Treatment: No Review of Systems - Review of Systems Able to Perform ROS?: Yes Is the patient limited [place] Citizen proficient: No Constitutional: Yes: Weight Stable. No: Chills, Diaphoresis, Fever, Loss of Appetite, Malaise, Weakness HEENTM: No: Recent change in vision, Nose Congestion, Throat Pain, Throat Swelling Respiratory: No: Cough, Shortness of Breath Cardiac (ROS): No: Chest Pain, Edema, Syncope ABD/GI: Yes: Constipated. No: Abdominal Distended, Blood Streaked Bowels, Diarrhea, Nausea, Poor Appetite, Poor Fluid Intake, Rectal Bleeding, Vomiting, Abdominal cramping : No: Burning, Dysuria, Pain, Urgency Musculoskeletal: No: Back Pain, Joint Pain Integumentary: No: Rash Neurological: No: Headache, Weakness, Dizziness Psychiatric: No: Sleep Pattern Change, Change in Appetite Endocrine: No: Increased Urine, Change in Weight Hematologic/Lymphatic: No: Anemia, Blood Clots, Easy Bleeding, Easy Bruising All Other Systems: Reviewed and Negative *Physical Exam - Vital Signs 05/20/18 14:21 Vital Signs Temperature 97.8 F 05/20/18 13:55 Pulse Rate 75 05/20/18 13:55 Respiratory Rate 16 05/20/18 13:55 Blood Pressure 134/75 05/20/18 13:55 O2 Sat by Pulse Oximetry (%) 100 05/20/18 13:55 - Physical Exam Comments: Vitals stable, pt afebrile. Pt in NAD, normal body habitus. PE showed pt alert and oriented. vocational education teacher generally intact, muscular strength and sensation intact. Eyes PERRLA, EOMI. Oropharynx without erythema or exudates, no LAD b/l. No nasal congestion, hearing intact. Clear heart sounds, S1/S2, no JVD, b/l pedal edema, or heart murmur. Clear lung sounds, no respiratory distress, wheezes, crackles, or accessory muscle use. No abdominal or CVA tenderness to palpation, no rebound, no guarding. Abdomen soft, non-distended, and with normoactive bowel sounds. Skin without jaundice or rash. 05/20/18 14:21 Medical Decision Making - Medical Decision Making Pt was seen at bedside, also will be seen by attending Dr. Calvin. Pt presenting with complaints of constipation x4-5 days. Pt has been taking OTC "tuck pads" (suppositories) with minimal relief. In the ER, pt had relief of his constipation with a large, non-bloody BM. Pt has been tolerating PO food and fluid intake with no difficulty. Pt denies any recent fevers/chills, headache, vision changes, syncope, chest pain, palpitations, SOB, nausea/ vomiting, abdominal pain, urinary symptoms, diarrhea, or leg swelling. Vitals stable, pt afebrile. Pt in NAD, normal body habitus. PE showed pt alert and oriented. vocational education teacher generally intact, muscular strength and sensation intact. Eyes PERRLA, EOMI. Oropharynx without erythema or exudates, no LAD b/l. No nasal congestion, hearing intact. Clear heart sounds, S1/S2, no JVD, b/l pedal edema, or heart murmur. Clear lung sounds, no respiratory distress, wheezes, crackles, or accessory muscle use. No abdominal or CVA tenderness to palpation, no rebound, no guarding. Abdomen soft, non-distended, and with normoactive bowel sounds. Skin without jaundice or rash. Likely constipation 2/2 diet/dehydration/low fiber, which resolved in the ER. Will provide GI consult for further work-up to r/o malignancy. Unlikely obstruction or gastroparesis, as pt BG has been under control, pt tolerating PO food and fluid, no n/v/d. No interventions or work-up required at this time. Will continue to reassess pt and monitor for symptomatic improvement. 05/20/18 14:04 Pt can be discharged to home with follow-up. Pt advised to follow-up with PCP in 1-2 days and has been referred to GI (Dr. Brannon). Strict return precautions provided with pt understanding. Sent miralax and colace to pt pharmacy. 05/20/18 14:16 *DC/Admit/Observation/Transfer Diagnosis at time of Disposition: Constipation Qualifiers: Constipation type: unspecified constipation type Qualified Code(s): K59.00 - Constipation, unspecified - Discharge Dispostion Disposition: HOME Condition at time of disposition: Improved Decision to Admit order: No - Prescriptions Prescriptions: Docusate Sodium [Colace] 100 mg PO DAILY PRN #30 capsule PRN Reason: Constipation Polyethylene Glycol 3350 [Miralax (For Daily Use) -] 17 gm PO DAILY PRN #1 bottle PRN Reason: Constipation - Referrals Referrals: Oriana Loera MD [Primary Care Provider] - Nikko Brannon MD [Staff Physician] - - Patient Instructions Printed Discharge Instructions: DI for Constipation Additional Instructions: You were seen in the ER today for constipation, which was relieved while in the ER. Please follow-up with your primary care doctor and GI (Dr. Brannon) within 1- 2 days to discuss your visit and make sure your symptoms have improved. Please return to the ER if you have any worsening abdominal pain or constipation that does not improve with medication, blood in your vomit or stool, development of fevers or chills, loss of consciousness, inability to tolerate food or fluids, or any other concerns. I have sent medication to your pharmacy to help soften your stool and relieve constipation (Miralax and Colace). Please take these medications as prescribed. - Post Discharge Activity
[2018-05-20 13:57] VITALS: BP 134/75; PULSE 75; TEMP 97.8; BMI 29.5
--- NOTE | 2018-05-20 14:30 | PDOC ---
Attending Attestation - Resident Resident Name: JamesCindy - ED Attending Attestation I have performed the following: I have examined & evaluated the patient, The case was reviewed & discussed with the resident, I agree w/resident's findings & plan, Exceptions are as noted - HPI HPI: 05/20/18 14:27 83 yo male h/o DM , htn here with c/o constipation. stats hasn't been able to have a BM for few days. has been dealing with this frequenty no prior abd surgeries. no n/v no pain. today while here in ed pt had large BM now feeling better requesting to be dc home. has never had a gi workup no prior colonoscopy. no f/c no other complaints. - Physicial Exam PE: 05/20/18 14:29 awake alert lungs clear bilaterally heart rrr no mrg abd soft nt nd. ext wwp . nuero alert oriented x 3. - Medical Decision Making 05/20/18 14:41 pt feels improved, nontender exam. would like to go home. dw pt and family will require outpt gi workup, and req colonoscopy. given referral for dr garcia.
== END 2018-05-20 15:00 | disposition home or self-care (01) ==
LOC: JER 13:10
DX: K59.00 Constipation, unspecified (principal); I10 Essential (primary) hypertension; E11.9 Type 2 diabetes mellitus without complications; Z79.84 Long term (current) use of oral hypoglycemic drugs; E78.5 Hyperlipidemia, unspecified; E78.00 Pure hypercholesterolemia, unspecified; Z96.651 Presence of right artificial knee joint
CPT/HCPCS: 99282-25

== ENCOUNTER 2021-08-07 07:56 | Inpatient (IN) | payer OTHER ==
[2021-08-07 09:23] LABS: BASO % 0.4 % (0-2.0); LYMPH % 22.3 % (8-40); MCH 30.1 pg (25.7-33.7); MCHC 33.4 g/dl (32.0-35.9); MEAN CELL VOLUME 90.1 fl (80-96); MEAN PLT VOLUME 9.3 fl (7.5-11.1); NEUT % 68.3 % (42.8-82.8); PLATELET COUNT 204 10^3/uL (134-434); RBC 4.66 M/mm3 (4.00-5.60); RDW 13.2 % (11.9-15.9); WHITE BLOOD COUNT 6.9 K/mm3 (4.0-10.0)
[2021-08-07 09:31] LABS: CHLORIDE 109 mmol/L (98-107); SODIUM 141 mmol/L (136-145)
[2021-08-07 09:32] LABS: ANION GAP 4 MMOL/L (8-16); BLOOD UREA NITROGEN 25.9 mg/dL (7-18); CALCIUM 9.3 mg/dL (8.5-10.1); CO2 27 mmol/L (21-32); GLUCOSE,RANDOM 83 mg/dL (74-106)
[2021-08-07 09:34] LABS: ALBUMIN 3.2 g/dl (3.4-5.0)
[2021-08-07 09:36] LABS: CREATININE 0.7 mg/dL (0.55-1.3); SGPT/ALT 19 U/L (13-61)
[2021-08-07 09:37] LABS: SGOT/AST 48 U/L (15-37)
[2021-08-07 09:38] LABS: ALK PHOS 103 U/L (45-117); BILIRUBIN,TOTAL 0.7 mg/dL (0.2-1); TOT PROT 6.8 g/dl (6.4-8.2)
[2021-08-07] MEDS ORDERED: ACETAMINOPHEN 325 MG TABLET (FP) PO PRN (10:41)
[2021-08-07 11:52] LABS: CALCIUM 8.9 mg/dL (8.5-10.1)
[2021-08-07 11:53] LABS: ALBUMIN 3.5 g/dl (3.4-5.0)
[2021-08-07 11:56] LABS: CREATININE 0.9 mg/dL (0.55-1.3); URINE APPEARANCE CLEAR; URINE BILIRUBIN NEGATIVE (NEGATIVE); URINE COLOR YELLOW; URINE GLUCOSE (UA) NEGATIVE (NEGATIVE); URINE KETONE NEGATIVE (NEGATIVE); URINE LEUK ESTERASE NEGATIVE (NEGATIVE); URINE NITRITE NEGATIVE (NEGATIVE); URINE PROTEIN NEGATIVE (NEGATIVE)
[2021-08-07 11:57] LABS: BILIRUBIN,TOTAL 0.9 mg/dL (0.2-1)
[2021-08-07 11:58] LABS: TOT PROT 6.4 g/dl (6.4-8.2)
[2021-08-07 12:07] LABS: COCAINE, UR NEGATIVE (NEGATIVE); OPIATES, URI NEGATIVE (NEGATIVE); PHENCYCLIDINE,URINE NEGATIVE (NEGATIVE); URINE BARBITURATES NEGATIVE (NEGATIVE)
[2021-08-07 12:08] LABS: METHADONE, UR NEGATIVE (NEGATIVE); URINE AMPHETAMINES NEGATIVE (NEGATIVE); URINE BENZODIAZEPINES NEGATIVE (NEGATIVE)
[2021-08-07 16:00] VITALS: BMI 27.6
[2021-08-07] MEDS: INSULIN SLIDING SCALE (NOVOLOG) 1 VIAL SQ SCH ×3 (16:31→21:37)
[2021-08-07] MEDS: metFORMIN HCL 500 MG TABLET (FP) PO SCH (17:39)
[2021-08-07] MEDS: ATORVASTATIN CA 20 MG TABLET (FP) PO SCH (21:37)
[2021-08-07] MEDS: HEPARIN NA (PORCINE) 5,000 UNITS/ML 1ML VIAL SQ SCH (21:37)
[2021-08-08] MEDS: metFORMIN HCL 500 MG TABLET (FP) PO SCH ×2 (06:56→17:06)
[2021-08-08] MEDS: GLIMEPIRIDE 4 MG TABLET PO SCH (06:56)
[2021-08-08] MEDS: INSULIN SLIDING SCALE (NOVOLOG) 1 VIAL SQ SCH ×4 (06:57→22:52)
[2021-08-08] MEDS: ASPIRIN COATED 81 MG TABLET.EC PO SCH (09:46)
[2021-08-08] MEDS: RAMIPRIL 2.5 MG CAPSULE PO SCH (09:46)
[2021-08-08] MEDS: HEPARIN NA (PORCINE) 5,000 UNITS/ML 1ML VIAL SQ SCH ×2 (09:51→22:27)
[2021-08-08] MEDS ORDERED: QUEtiapine FUMARATE 25 MG TABLET PO SCH (10:00)
[2021-08-08] MEDS ORDERED: LORazepam 2 MG/ML SDV VIAL IVPB ONE (10:15)
[2021-08-08 12:36] LABS: HEMATOCRIT 38.1 % (35.4-49); MCH 32.6 pg (25.7-33.7); MCHC 34.1 g/dl (32.0-35.9); MEAN CELL VOLUME 95.7 fl (80-96); MEAN PLT VOLUME 9.2 fl (7.5-11.1); PLATELET COUNT 125 10^3/uL (134-434); RBC 3.98 M/mm3 (4.00-5.60); WHITE BLOOD COUNT 5.7 K/mm3 (4.0-10.0)
[2021-08-08 12:48] LABS: BLOOD UREA NITROGEN 14.8 mg/dL (7-18)
[2021-08-08 12:52] LABS: CALCIUM 8.6 mg/dL (8.5-10.1); CREATININE 0.9 mg/dL (0.55-1.3)
[2021-08-08] MEDS: ATORVASTATIN CA 20 MG TABLET (FP) PO SCH (22:52)
[2021-08-08] MEDS: QUEtiapine FUMARATE 25 MG TABLET PO SCH (22:52)
[2021-08-09] MEDS: INSULIN SLIDING SCALE (NOVOLOG) 1 VIAL SQ SCH ×4 (06:12→21:41)
[2021-08-09] MEDS: metFORMIN HCL 500 MG TABLET (FP) PO SCH ×2 (06:44→17:10)
[2021-08-09] MEDS: GLIMEPIRIDE 4 MG TABLET PO SCH (06:44)
[2021-08-09] MEDS: HEPARIN NA (PORCINE) 5,000 UNITS/ML 1ML VIAL SQ SCH ×2 (10:44→21:45)
[2021-08-09] MEDS: RAMIPRIL 2.5 MG CAPSULE PO SCH (10:44)
[2021-08-09] MEDS: ASPIRIN COATED 81 MG TABLET.EC PO SCH (10:44)
[2021-08-09] MEDS: QUEtiapine FUMARATE 25 MG TABLET PO SCH (21:44)
[2021-08-09] MEDS: ATORVASTATIN CA 20 MG TABLET (FP) PO SCH (21:45)
[2021-08-10] MEDS: metFORMIN HCL 500 MG TABLET (FP) PO SCH ×2 (06:58→17:37)
[2021-08-10] MEDS: GLIMEPIRIDE 4 MG TABLET PO SCH (06:58)
[2021-08-10] MEDS: INSULIN SLIDING SCALE (NOVOLOG) 1 VIAL SQ SCH ×4 (06:59→21:45)
[2021-08-10 09:02] LABS: BASO % 0.5 % (0-2.0); EOS % 2.3 % (0-4.5); HEMATOCRIT 38.5 % (35.4-49); HEMOGLOBIN 13.2 GM/dL (11.7-16.9); LYMPH % 40.2 % (8-40); MCH 32.5 pg (25.7-33.7); MCHC 34.3 g/dl (32.0-35.9); MEAN CELL VOLUME 94.8 fl (80-96); MEAN PLT VOLUME 9.3 fl (7.5-11.1); MONO % 12.3 % (3.8-10.2); NEUT % 44.7 % (42.8-82.8); PLATELET COUNT 115 10^3/uL (134-434); RBC 4.06 M/mm3 (4.00-5.60); RDW 13.2 % (11.9-15.9); WHITE BLOOD COUNT 5.4 K/mm3 (4.0-10.0)
[2021-08-10] MEDS: HEPARIN NA (PORCINE) 5,000 UNITS/ML 1ML VIAL SQ SCH ×2 (10:07→21:44)
[2021-08-10] MEDS: RAMIPRIL 2.5 MG CAPSULE PO SCH (10:07)
[2021-08-10] MEDS: ASPIRIN COATED 81 MG TABLET.EC PO SCH (10:07)
[2021-08-10] MEDS: ATORVASTATIN CA 20 MG TABLET (FP) PO SCH (21:44)
[2021-08-10] MEDS: QUEtiapine FUMARATE 25 MG TABLET PO SCH (21:45)
[2021-08-11] MEDS: metFORMIN HCL 500 MG TABLET (FP) PO SCH ×2 (06:22→17:06)
[2021-08-11] MEDS: GLIMEPIRIDE 4 MG TABLET PO SCH (06:22)
[2021-08-11] MEDS: INSULIN SLIDING SCALE (NOVOLOG) 1 VIAL SQ SCH ×4 (06:28→21:29)
[2021-08-11] MEDS: RAMIPRIL 2.5 MG CAPSULE PO SCH (11:03)
[2021-08-11] MEDS: HEPARIN NA (PORCINE) 5,000 UNITS/ML 1ML VIAL SQ SCH ×2 (11:04→21:25)
[2021-08-11] MEDS: ASPIRIN COATED 81 MG TABLET.EC PO SCH (11:04)
[2021-08-11 21:01] VITALS: PULSE 66
[2021-08-11] MEDS: ATORVASTATIN CA 20 MG TABLET (FP) PO SCH (21:25)
[2021-08-11] MEDS: QUEtiapine FUMARATE 25 MG TABLET PO SCH (21:25)
[2021-08-12] MEDS: INSULIN SLIDING SCALE (NOVOLOG) 1 VIAL SQ SCH (06:07)
[2021-08-12] MEDS: GLIMEPIRIDE 4 MG TABLET PO SCH (06:15)
[2021-08-12] MEDS: metFORMIN HCL 500 MG TABLET (FP) PO SCH (06:16)
[2021-08-12 07:05] VITALS: BP 131/72; TEMP 98.4
[2021-08-12] MEDS: RAMIPRIL 2.5 MG CAPSULE PO SCH (09:22)
[2021-08-12] MEDS: ASPIRIN COATED 81 MG TABLET.EC PO SCH (09:22)
[2021-08-12] MEDS: HEPARIN NA (PORCINE) 5,000 UNITS/ML 1ML VIAL SQ SCH (09:23)
== END 2021-08-12 11:02 | disposition home or self-care (01) | DRG 884 ==
LOC: JER 07:56 → JERBED 09:09 → J8W 15:32
PROVIDERS: ADMIT Family Medicine; ATTEND Family Medicine
DX: F03.91 Unspecified dementia, unspecified severity, with behavioral disturbance (principal); E03.9 Hypothyroidism, unspecified; E11.9 Type 2 diabetes mellitus without complications; I10 Essential (primary) hypertension; E78.5 Hyperlipidemia, unspecified; R45.1 Restlessness and agitation; K59.00 Constipation, unspecified; E87.5 Hyperkalemia; Z86.73 Personal history of transient ischemic attack (TIA), and cerebral infarction without residual deficits
CPT/HCPCS: 36415; 70450-TC; 71045-TC-FY; 80048; 80053; 80307; 81003; 82962; 84439; 84443; 84484; 85025; 85027; 87086; 93005; 93010; 97116-GP; 97161-GP; 99285-25; C9803-CS; J1644; U0003; U0005